=== PATIENT | male | born 1965 | race Caucasian/White ===

== ENCOUNTER 2017-09-27 07:49 | Emergency (ER) | payer SELFPAY ==
[~2017-09-27] VITALS: Ht 188 cm; Wt 258.3 kg
[~2017-09-27 07:49] MED LIST: Aspirin PO; CELEXA20 MG PO; ECOTRIN325 MG PO; HYZAAR 100-21 TABLET PO; Hyzaar 100-25 PO; PERCOCET 5/31 TABLET PO; ROCEPHIN1 GM/50 ML IV; ZOCOR40 MG PO; Zocor PO; celeXA PO
[2017-09-27 09:08] LABS: HEMATOCRIT 37.4 % (38.0-50.0); MCH 29.5 PG (29.0-34.0); MCHC 32.1 G/DL (30.0-36.0); MCV 91.9 FL (86-99); PLATELET COUNT 172 K/uL (156-360); RBC DIS.WIDTH-CV 14.2 % (11.8-14.6); RBC DIS.WIDTH-SD 48.2 % (39-53); RED BLOOD COUNT 4.07 M/uL (4.00-5.50); WHITE BLOOD COUNT 9.1 K/uL (4.1-10.2)
[2017-09-27 09:17] LABS: CHLORIDE 93 mEq/L (99-109); POTASSIUM 3.3 mEq/L (3.7-5.4); SODIUM 136 mEq/L (136-147)
[2017-09-27 09:19] LABS: GLUCOSE 125 mg/dL (70-99)
[2017-09-27 09:22] LABS: CREATININE 0.9 mg/dL (0.6-1.3); GFR ESTIMATE (CALCULATED) > 59 mL/min/ (58.99-99999)
[2017-09-27 09:23] LABS: UREA NITROGEN (BUN) 17 mg/dL (9-23)
[2017-09-27] MEDS ORDERED: DOXYCYCLINE HY100 MG PO (10:27)
[2017-09-27 11:50] VITALS: BP 148/75
== END 2017-09-27 12:16 | disposition home or self-care (01) ==
LOC: EME → EDBD 07:49 → EME 07:49
PROVIDERS: Nurse Practitioner Family
DX: L03.115 Cellulitis of right lower limb (principal); I10 Essential (primary) hypertension; F41.9 Anxiety disorder, unspecified; F32.9 Major depressive disorder, single episode, unspecified
CPT/HCPCS: 80048; 83605; 85027; 87040; 99281; 99284

== ENCOUNTER 2017-10-02 12:34 | Inpatient (IN) | payer SELFPAY ==
[~2017-10-02] VITALS: Ht 188 cm; Wt 258.2 kg
[~2017-10-02 12:34] MED LIST changes: +DOXYCYCLINE HY100 MG PO
[2017-10-02 14:22] LABS: HEMOGLOBIN 11.2 G/DL (12.5-16.6); MCH 29.9 PG (29.0-34.0); MCV 93.3 FL (86-99); RBC DIS.WIDTH-CV 14.4 % (11.8-14.6); RBC DIS.WIDTH-SD 49.1 % (39-53); RED BLOOD COUNT 3.75 M/uL (4.00-5.50); WHITE BLOOD COUNT 14.5 K/uL (4.1-10.2)
[2017-10-02 14:26] LABS: PLATELET COUNT 370 K/uL (156-360)
[2017-10-02 14:31] LABS: CHLORIDE 97 mEq/L (99-109); POTASSIUM 3.5 mEq/L (3.7-5.4); SODIUM 140 mEq/L (136-147)
[2017-10-02 14:33] LABS: GLUCOSE 114 mg/dL (70-99); TOTAL PROTEIN 7.8 g/dL (6.4-8.3)
[2017-10-02 14:35] LABS: TOTAL BILIRUBIN 1.2 mg/dL (0.0-1.0)
[2017-10-02 14:37] LABS: ALKALINE PHOSPHATASE 140 IU/L (3-129); CREATININE 0.8 mg/dL (0.6-1.3); GFR ESTIMATE (CALCULATED) > 59 mL/min/ (58.99-99999)
[2017-10-02 14:38] LABS: UREA NITROGEN (BUN) 18 mg/dL (9-23)
[2017-10-02 14:39] LABS: AST (GOT) 32 IU/L (2-34)
[2017-10-02 14:40] LABS: ALT (GPT) 47 IU/L (3-49)
[2017-10-02] MEDS ORDERED: DOXYCYCLINE HY100 MG PO (14:58)
[2017-10-02] MEDS ORDERED: LO-DOSE ASPIRIN81 M1 PO (14:59)
[2017-10-02] MEDS ORDERED: ADVIL200 MG PO (15:00)
[2017-10-02] MEDS ORDERED: [UNRECOGNIZED DRUG - SUPPLY] TP (15:01)
[2017-10-02] MEDS ORDERED: MEPILEX BORDER1 EACH TP (15:02)
[2017-10-02 21:52] VITALS: BP 162/70
[2017-10-03 07:58] VITALS: BP 146/67
[2017-10-03 08:06] LABS: HEMOGLOBIN 10.4 G/DL (12.5-16.6); MCH 29.1 PG (29.0-34.0); MCHC 30.6 G/DL (30.0-36.0); MCV 95.2 FL (86-99); PLATELET COUNT 406 K/uL (156-360); RBC DIS.WIDTH-CV 14.7 % (11.8-14.6); RBC DIS.WIDTH-SD 51.4 % (39-53); RED BLOOD COUNT 3.57 M/uL (4.00-5.50); WHITE BLOOD COUNT 12.7 K/uL (4.1-10.2)
[2017-10-03 08:25] LABS: CHLORIDE 99 MEQ/L (99-109); CREATININE 0.7 MG/DL (0.6-1.3); GFR ESTIMATE (CALCULATED) > 59 mL/min/ (58.99-99999); GLUCOSE 123 mg/dL (70-99); POTASSIUM 3.6 MEQ/L (3.7-5.4); SODIUM 142 MEQ/L (136-147); UREA NITROGEN (BUN) 15 mg/dL (9-23)
[2017-10-03 08:42] LABS: ABS NEUTROPHIL COUNT 9.4; ANISOCYTOSIS 1+; BAND NEUTROPHILS 3.5 % (0-8.0); EOSINOPHIL ABS CT 0.3; EOSINOPHILS 2.6 % (0-5.0); LYMPHOCYTES 11.3 % (15.0-45.0); METAMYELOCYTES 5.2 %; MONOCYTES 5.2 % (0-9.0); MYELOCYTES 1.8 %; PLAT.SUFFICIENCY INCREASED; POLYCHROMASIA 1+; SEG.NEUTROPHILS 70.4 % (46.0-76.0); TOXIC GRANULATION 1+
[2017-10-03 15:48] VITALS: BP 137/65
[2017-10-03 23:53] VITALS: BP 130/60
[2017-10-04 03:56] LABS: HEMATOCRIT 33.6 % (38.0-50.0); HEMOGLOBIN 10.6 G/DL (12.5-16.6); IMM.RETIC FRACTION 30.6 % (3-19); MCH 29.7 PG (29.0-34.0); MCHC 31.5 G/DL (30.0-36.0); MCV 94.1 FL (86-99); NRBC (%) 0.2 /100 WBC (0-0); PLATELET COUNT 384 K/uL (156-360); RBC DIS.WIDTH-CV 14.6 % (11.8-14.6); RBC DIS.WIDTH-SD 51.2 % (39-53); RED BLOOD COUNT 3.57 M/uL (4.00-5.50); RETIC HGB EQUIVALENT 32.4 (28-36); RETICULOCYTE COUNT 1.8 % (0.5-1.8); WHITE BLOOD COUNT 11.5 K/uL (4.1-10.2)
[2017-10-04 04:09] LABS: CHLORIDE 99 mEq/L (99-109); POTASSIUM 3.7 mEq/L (3.7-5.4); SODIUM 141 mEq/L (136-147)
[2017-10-04 04:11] LABS: GLUCOSE 117 mg/dL (70-99)
[2017-10-04 04:15] LABS: CREATININE 0.8 mg/dL (0.6-1.3); GFR ESTIMATE (CALCULATED) > 59 mL/min/ (58.99-99999)
[2017-10-04 04:16] LABS: UREA NITROGEN (BUN) 15 mg/dL (9-23)
[2017-10-04 04:33] LABS: ABS NEUTROPHIL COUNT 8.4; EOSINOPHIL ABS CT 0.1; EOSINOPHILS 0.9 % (0-5.0); LYMPHOCYTES 16.5 % (15.0-45.0); MONOCYTES 8.7 % (0-9.0); MYELOCYTES 0.9 %; NUCLEATED RBC'S 0.9; PLAT.SUFFICIENCY ADEQUATE
[2017-10-04 04:38] LABS: IRON 34 MCG/DL (35-150); TRANSFERRIN (TIBC) 147.1 mg/dL (215-380); TRANSFERRIN SATUR. 23 % (20-55)
[2017-10-04 08:12] VITALS: BP 134/60
[2017-10-04 08:31] LABS: THYROTROPIN (TSH) 2.6 MIU/L (0.4-5.5)
[2017-10-04 08:41] LABS: FOLIC ACID (FOLATE) 12.3 NG/ML (5.0-22.0)
[2017-10-04 12:06] LABS: HEMOGLOBIN A1c (GLYCOHEMOGLOB) 6.2 % (Below 5.7)
[2017-10-04 16:21] VITALS: BP 128/72
[2017-10-04 23:24] VITALS: BP 142/63
[2017-10-05 08:01] VITALS: BP 125/61
[2017-10-05 16:19] VITALS: BP 122/60
[2017-10-05 23:12] VITALS: BP 133/61
[2017-10-06 06:25] LABS: HEMATOCRIT 36.1 % (38.0-50.0); HEMOGLOBIN 10.9 G/DL (12.5-16.6); MCH 28.9 PG (29.0-34.0); MCHC 30.2 G/DL (30.0-36.0); MCV 95.8 FL (86-99); PLATELET COUNT 400 K/uL (156-360); RBC DIS.WIDTH-CV 14.6 % (11.8-14.6); RED BLOOD COUNT 3.77 M/uL (4.00-5.50); WHITE BLOOD COUNT 8.8 K/uL (4.1-10.2)
[2017-10-06 07:00] LABS: CHLORIDE 101 MEQ/L (99-109); CREATININE 0.7 MG/DL (0.6-1.3); GFR ESTIMATE (CALCULATED) > 59 mL/min/ (58.99-99999); GLUCOSE 118 mg/dL (70-99); POTASSIUM 4.3 MEQ/L (3.7-5.4); SODIUM 141 MEQ/L (136-147); UREA NITROGEN (BUN) 16 mg/dL (9-23)
[2017-10-06 07:08] LABS: ABS NEUTROPHIL COUNT 5.8; BAND NEUTROPHILS 2.6 % (0-8.0); EOSINOPHIL ABS CT 0.2; EOSINOPHILS 2.6 % (0-5.0); LYMPHOCYTES 24.6 % (15.0-45.0); METAMYELOCYTES 1.7 %; MONOCYTES 5.3 % (0-9.0); PLAT.SUFFICIENCY ADEQUATE; POLYCHROMASIA 1+; SEG.NEUTROPHILS 63.2 % (46.0-76.0)
[2017-10-06 08:00] VITALS: BP 146/86
[2017-10-06 16:00] VITALS: BP 143/72
[2017-10-07 00:55] VITALS: BP 129/74
[2017-10-07 08:50] VITALS: BP 125/58
[2017-10-07] MEDS ORDERED: FERROUS SULFAT325 MG PO (14:20)
[2017-10-07] MEDS ORDERED: FUROSEMIDE40 MG PO (14:21)
[2017-10-07] MEDS ORDERED: K-DUR20 MEQ PO (14:21)
[2017-10-07] MEDS ORDERED: SANTYL30 GM TP (14:21)
[2017-10-07] MEDS ORDERED: FAMOTIDINE20 MG PO (14:21)
[2017-10-07] MEDS ORDERED: BACTRIM,SEPT1 TABLET PO (14:22)
[2017-10-07] MEDS ORDERED: KEFLEX500 MG PO ×2 (14:22→16:20)
== END 2017-10-07 17:27 | disposition home or self-care (01) | DRG 603 ==
LOC: EME → EDBD 12:34 → EME 12:34 → 3EAST 18:04 → EDOF 18:04 → ENRESERV 18:04 → 3EAST 21:02
PROVIDERS: Emergency Medicine; Family Medicine Sports Medicine
DX: L03.115 Cellulitis of right lower limb (principal); I83.228 Varicose veins of left lower extremity with both ulcer of other part of lower extremity and inflammation; Z68.45 Body mass index [BMI] 70 or greater, adult; E66.01 Morbid (severe) obesity due to excess calories; E78.5 Hyperlipidemia, unspecified; L97.829 Non-pressure chronic ulcer of other part of left lower leg with unspecified severity; S80.821A Blister (nonthermal), right lower leg, initial encounter; D63.8 Anemia in other chronic diseases classified elsewhere; E87.6 Hypokalemia; F32.9 Major depressive disorder, single episode, unspecified; I10 Essential (primary) hypertension; K58.9 Irritable bowel syndrome, unspecified; I89.0 Lymphedema, not elsewhere classified; Z79.82 Long term (current) use of aspirin
CPT/HCPCS: 80048; 80053; 80202; 82607; 82746; 83036; 83540; 84443; 84466; 85025; 85027; 85046; 87040; 87070; 87075; 87205; 93970; 97530 GP; 99281; 99285; A6212; J0690; J1650; J1956; J3370; J7030; J7040